=== PATIENT | female | born 2000 | race African-American/Black ===

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

== ENCOUNTER 2020-08-13 10:10 | Day surgery (SDC) | payer OTHER, SELFPAY ==
--- NOTE | 2020-08-11 16:56 | HP.PCM_ITS ---
History and Physical Date of Admission: 08/13/20 HISTORY AND PHYSICAL ? Sapna Veras 2000 ? ? REFERRING PHYSICIAN: Jose Alberto Boyer * ? CHIEF COMPLAINT: Consult (Consult Abd pain / Weight) ? HPI: The patient is a 20 year old female with multiple complaints - primarily abdominal pain, fatigue, and weight loss. 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 Usually worse in the mornings. She notes it is intermittent and that it radiates to the back. It is constant but waxes and wanes. She states that it is difficult to describe the pain, she states that it is not stabbing or burning, but it is severe. She also notes neck and back pain. She states that because of the pain she can barely walk at times. She also would note that her heart would beat fast. She also notes occasional black stools. She denies blood in her stools. She denies constipation or diarrhea. She denies nausea/emesis. I had stomach ulcers about 2 years ago, <they told me> back in my home [place]. She has been trialed on omeprazole but she does not believe that it has improved her symptoms. She complains of increased tiredness since summer. I'm very used to my body....need more sleep than 9 hours. I noticed <that when> I wake up <I feel> haven't slept at all...sleep 15 hours...wake up feeling weak...heart palpitations. She notes of weight loss for the past 9 months, she has lost 30#, she states that it has stabilized. She states that she has no appetite. She denies fevers, but feels hot when it is cold outside. She states that she is a social use of cigarettes. She admits to marijuana use; she states that she used it about 2-3 weeks ago, but then admits that she uses it every weekend. She states that she drinks alcohol about every 2 months only. She notes of no cancer in her immediate family. ? ? PAST MEDICAL HISTORY Diagnosis Date ? Ovarian cyst ? ? PAST SURGICAL HISTORY: Denies ? ? Current Outpatient Medications Medication Sig ? omeprazole (PRILOSEC) 20 mg capsule Take 40 mg by mouth once daily. ? ? ALLERGIES: Patient has no known allergies. ? PERSONAL HISTORY: Social History ? Tobacco Use ? Smoking status: Light Tobacco Smoker Substance Use Topics ? Alcohol use: Not on file ? Drug use: Not on file Admits to occasional marijuana use, weekly, last about a week ago ? ? FAMILY HISTORY: no cancer in immediate family ? The review of systems data was entered by the nurse and reviewed by me ? Nursing Notes: Abe Sepulveda JESSICA 08/01/2020 3:44 PM Signed REVIEW OF SYSTEMS: General: The patient NOTES fatigue, NOTES weight loss, denies weight gain, NOTES feeling hot, and denies feelings of cold. Eyes: The patient denies glaucoma, denies eye injury/surgery, does not wear glasses or contacts. Ear/Nose/Throat: The patient denies allergies, denies hayfever, denies ear infections, and denies bloody noses. Cardiovascular: The patient NOTES chest pain, denies heart disease, denies high blood pressure,denies cardiac stent, denies prior heart attack, denies irregular heart beat, denies high cholesterol, denies poor circulation, denies heart failure, other cardiac issues, denies claudication, denies cold feet, denies peripheral arterial stent. Respiratory: The patient denies tuberculosis, denies pneumonia, denies frequent cough, denies pulmonary embolism, denies shortness of breath, and denies coughing up blood. Gastrointestinal: The patient denies difficulty swallowing, denies acid reflux,NOTES ulcers, denies vomiting, NOTES jaundice/hepatitis, denies gallbladder problems, denies black or tarry stools, denies hemorrhoids, denies bleeding from rectum, denies diverticulitis, denies constipation, denies diarrhea, denies loss of stool control, and denies hernias. Kidney/Bladder: The patient denies kidney stones, denies urine infections, and denies bloody urine. Skin: The patient denies a history of skin cancer, denies bleeding/changing moles, and denies a history of skin rash. Neurologic: The patient denies a history of epilepsy/convulsions, denies headaches, denies head/spinal injuries, and denies stroke/TIA. Psychiatric: The patient denies psychiatric medications, denies depression, and denies voices, denies substance abuse. Endocrine: The patient denies thyroid disorders, denies diabetes, and denies hormonal problems. Hematologic: The patient denies a history of bruising, denies bleeding, and denies anemia, denies blood clots. Infections: The patient denies a history of measles and mumps, denies rheumatic fever, and denies sexually transmitted diseases. Musculoskeletal: The patient denies back pain/injury, denies back problems, denies sciatica, denies knee/foot trouble, denies arthritis, or denies gout. When was patient's last Mammogram screening? N/A Last Colonoscopy: N/A Abe Sepulveda LPN ? PHYSICAL EXAMINATION: General: The patient is 20 year old female, well nourished, well hydrated in no acute distress. The patient is oriented to time, place, and person. VITALS: Pulse 98, temperature 37.1 ?C (98.8 ?F), height 162.6 cm (5' 4), weight 54 kg (119 lb), SpO2 100 %. Body mass index is 20.43 kg/m?. Head ? Normocephalic. EOM intact with sclera clear and no icterus noted.. Neck - supple with no jugular venous distention noted. Trachea is midline. Lungs ? clear to auscultation. Normal breath sounds. No rales/rhonchi/wheezing noted. No labored breathing noted, such as retractions. No cough heard. Heart ? normal S1 and S2 auscultated. No rubs/clicks/murmurs noted. Regular rate. Abdomen ? soft and benign. Normal bowel sounds. No abdominal bruits noted. Extremities ? no calf tenderness noted. No pitting edema noted. Skin ? normal skin integrity. Neurological ? gait normal, no focal deficits noted. Psych ? calm and appropriate ? ? Assessment IMPRESSION: abdominal pain, melena, weight loss, fatigue ? PLAN: . I have discussed the above with the patient. I have offered EGD, possible biopsies I have explained the procedure to the patient. I have counseled the patient as to the risks of the procedure, including but not limited to: infection, bleeding, injury to any intrabdominal organs such as liver/spleen, perforation of the GI tract, inability to complete the procedure, complications of anesthesia, etc. ? the patient understands. ? The patient was offered a surgery/procedure at a [facility]. The provider and patient have discussed in detail the risk of exposure to and/or potential harm posed by the COVID-19 virus with having a surgery/procedure at this time versus the risk of? delaying the surgery/procedure. It is not possible to know either the risk of delaying the surgery or procedure or chance of getting an infection with perfect accuracy, but a joint decision was made between the patient and the provider ?to proceed at this time with the scheduled surgery/procedure. ? The patient wishes to proceed. I will also order an US of the RUQ abdomen to rule out gallbladder disease. I have answered all questions to the patient?s satisfaction and the patient has no further questions. ? . Diagnoses: (R10.13) Epigastric abdominal pain (primary encounter diagnosis) (K92.1) Melena (R63.4) Abnormal weight loss (R53.81, R53.83) Malaise and fatigue Return to Clinic: The patient is instructed to follow-up with me after the procedures to discuss the results. ? ? Elle Jamison MD
[2020-08-13] VITALS (7 sets, daily range): BP systolic 83–114; BP diastolic 52–88; PULSE 59–105; RESP 16–18; TEMP 36.2–36.8; O2SAT 99–100; BMI 19.2
--- NOTE | 2020-08-13 | COLBX_PTH ---
PATIENT: CASEY CULP LOC: [facility] U#:[id number] AGE/SX: 20/F ROOM: RE08/13/[address]: Dr. Elle Jamison MD : 2000 BED: DIS: 08/13/2020 SPEC #: [id number] RECD: 08/13/20 12:12 STATUS: AVILA REDg #: [id number] GLORIA: 08/13/20 00:[address]: Elle Jamison DEPT: SURGICAL PATHOLOGY RECD BY: Ulises Giraldo ENTERED: 08/13/20 12:13 SP TYPE: COLON BX OTHR DR: Dr. Morgan Boo MD Tissues: A - Duodenum, NOS B - Gastric mucous membrane Procedures: Surgery Specimen Level IV HEADER OPERATION[place] [place] DIAGNOSIS: Abdominal pain, melena, weight loss, fatigue TISSUE SUBMITTED: A ? Duodenum biopsy, B ? Antrum biopsy for H. pylori and path MICROSCOPIC DIAGNOSIS A. Duodenum, biopsy: A fragment of duodenal mucosa, no pathologic diagnosis. B. Antrum, biopsy: Mild to moderate gastritis. See microscopic description and comment. JESÚS:aldo 08/14/2020 COMMENT B. The results of immunohistochemistry for Helicobacter pylori will be reported separately ([id number]). MICROSCOPIC DESCRIPTION Slides are reviewed. B. The specimen shows fragments of gastric mucosa with chronic inflammatory cell infiltrates in the lamina propria consisting of lymphocytes and plasma cells, consistent with mild to moderate chronic gastritis. GROSS DESCRIPTION A - Received in fixative is one container labeled with the patient's name and designated duodenum biopsy. The specimen consists of one irregular fragment of light isaac soft tissue that measures 0.3 x 0.3 x 0.1 cm. The specimen is totally submitted in one cassette. B - Received in fixative is one container labeled with the patient's name and designated antrum biopsy. The specimen consists of one irregular fragment of light isaac soft tissue that measures 0.3 x 0.2 x 0.1 cm. The specimen is totally submitted in one cassette. / JESÚS:aldo 08/13/20 TC:3 CPT: 42063 x2
--- NOTE | 2020-08-13 10:30 | IMM_PTH ---
PATIENT: CASEY CULP LOC: [facility] U#:[id number] AGE/SX: 20/F ROOM: RE08/13/[address]: Dr. Elle Jamison MD : 2000 BED: DIS: 08/13/2020 SPEC #: [id number] RECD: 08/13/20 13:22 STATUS: AVILA REQ #: [id number] GLORIA: 08/13/20 10:[address]: Elle Jamison DEPT: IMMUNOHISTOCHEMISTRY RECD BY: Bessy Gonzalez ENTERED: 08/13/20 13:23 SP TYPE: IMMUNO OTHR DR: Dr. Morgan Boo MD Tissues: B - Stomach, NOS Procedures: H Pylori (initial) PHYSICIAN & INSTITUTION [place] [id number] SPECIMEN INFORMATION: Tissue Source: B ? Antrum biopsy Clinical Info: Abdominal pain, melena, weight loss, fatigue Specimen Number: [id number] CPT code: 93304 METHODOLOGY: Deparaffinized sections of prefer/formalin-fixed tissue or PAP/DQ stained slides are incubated with monoclonal/polyclonal antibodies/oligonucleotide probes. Localization is made via biotin free immunoperoxidase method. Appropriate controls are performed and reacted as expected. Results on target cell population are indicated in the following table: RESULTS: ANTIBODY / CLONE RESULT Block B H Pylori (polyclonal) negative These tests were developed and their performance characteristics determined by [facility]. They may not have been cleared or approved by the U.S. Food and Drug Administration. The FDA has determined that such clearance or approval is not necessary. INTERPRETATION: B. Antrum biopsy: Negative for Helicobacter pylori organisms. SJ:aldo 08/14/2020
[2020-08-13 10:40] LABS: Internal QC Validated? YES +Cl - CLEAR BKGD; Pregnancy, Urine Negative Negative
--- NOTE | 2020-08-13 11:17 | OP.CCLET_ITS ---
08/13/2020 Morgan Boo [address] [place] [address] Re : Upper GI endoscopy procedure for Sapna Lawrencemarleen Dear Dr. Boo This procedure was performed on Thursday, August 13, 2020. My impressions and recommendations are as follows: Impressions : - Erythematous duodenopathy. Biopsied. - Clotted blood in the gastric fundus. Biopsied antrum to rule out H pylori. - Normal esophagus. Recommendations : - Discharge patient to home (ambulatory). - Resume previous diet. - Continue present medications. - Follow up visit via telemedicine with Mariam Kilpatrick PA-C to discuss results. Call to set this up, thank you My findings are described in the full procedure note, which is enclosed. If I can be of further assistance, please feel free to contact me at Doctor phone number(s): , Work: . Sincerely, MD Elle Boo MD 08/13/2020 11:16:53 AM This report has been signed electronically.
--- NOTE | 2020-08-13 11:17 | OP.EGD_ITS ---
Patient Name: Sapna Veras Procedure Date: 08/13/2020 10:23 AM Date of : 2000 Age: 20 Procedure: Upper GI endoscopy Indications: Epigastric abdominal pain, Early satiety, Nausea with vomiting, Weight loss Providers: Elle Jamison MD Medicines: See the Anesthesia note for documentation of the administered medications Patient Profile: Refer to note in patient chart for documentation of history and physical. Complications: No immediate complications. Procedure: Pre-Anesthesia Assessment: - see anesthesia note After obtaining informed consent, the endoscope was passed under direct vision. Throughout the procedure, the patient's blood pressure, pulse, and oxygen saturations were monitored continuously. The gastroscope was introduced through the mouth, and advanced to the second part of duodenum. The upper GI endoscopy was accomplished without difficulty. The patient tolerated the procedure well. Scope In: 10:57:00 AM Scope Out: 11:10:04 AM Total Procedure Duration Time 0 hours 13 minutes 4 seconds Findings: Localized mildly erythematous mucosa without active bleeding and with no stigmata of bleeding was found in the duodenal bulb. Biopsies were taken with a cold forceps for histology. Verification of patient identification for the specimen was done. Estimated blood loss was minimal. Clotted blood was found in the gastric fundus - no source was identified - no evidence of esophageal stricture/etc.- possible Avis Khoury? Biopsies were taken with a cold forceps for histology/H pylori of the antrum. Verification of patient identification for the specimen was done by the registered dietetic technician. The examined esophagus was normal - no hiatal hernia, GE junction normal, no strictures. Impression: - Erythematous duodenopathy. Biopsied. - Clotted blood in the gastric fundus. Biopsied antrum to rule out H pylori. - Normal esophagus. Recommendation: - Discharge patient to home (ambulatory). - Resume previous diet. - Continue present medications. - Follow up visit via telemedicine with Mariam Kilpatrick PA-C to discuss results. Call to set this up, thank you Procedure Code(s): --- Professional --- 18653, Esophagogastroduodenoscopy, flexible, transoral; with biopsy, single or multiple Diagnosis Code(s): --- Professional --- K31.89, Other diseases of stomach and duodenum K92.2, Gastrointestinal hemorrhage, unspecified R10.13, Epigastric pain R68.81, Early satiety R11.2, Nausea with vomiting, unspecified R63.4, Abnormal weight loss CPT copyright 2017 [employer]. All rights reserved. The codes documented in this report are preliminary and upon petal shaper hand review may be revised to meet current compliance requirements. MD Elle Boo MD 08/13/2020 11:16:53 AM This report has been signed electronically. Number of Addenda: 0 Note Initiated On: 08/13/2020 10:23 AM
== END 2020-08-13 12:23 ==
LOC: EN 10:11 → AC 10:13
PROVIDERS: PCP Pediatrics; Referring Provider Pediatrics; Visit Provider Surgery
PROC: 0DJ08ZZ Inspection of Upper Intestinal Tract, Via Natural or Artificial Opening Endoscopic (ICD-10-PCS; CPT 43235; principal; 2020-08-13 10:25)
DX: K29.50 Unspecified chronic gastritis without bleeding (principal); R11.2 Nausea with vomiting, unspecified; R68.81 Early satiety; R10.13 Epigastric pain; R63.4 Abnormal weight loss; R53.81 Other malaise; R53.83 Other fatigue; K31.89 Other diseases of stomach and duodenum; F17.210 Nicotine dependence, cigarettes, uncomplicated; F12.90 Cannabis use, unspecified, uncomplicated
CPT/HCPCS: 43239; 81025; 87426; 88305; 88342; J7120; J2405

== ENCOUNTER → 2020-08-18 12:38 | Outpatient (CLI) | payer OTHER, SELFPAY ==
[2020-08-13 10:39] VITALS: BMI 19.2
== END ==
PROVIDERS: PCP Pediatrics; Referring Provider Family Medicine; Visit Provider Family Medicine
DX: Z23 Encounter for immunization (principal)
CPT/HCPCS: 0031A; 91303

== ENCOUNTER 2021-02-05 11:55 | Emergency (ER) | payer OTHER, SELFPAY ==
[2021-02-05 11:56] VITALS: BP 120/88; PULSE 93; RESP 16; TEMP 36.9; O2SAT 97; BMI 20.2
--- NOTE | 2021-02-05 12:08 | EDS_ITS ---
HPI History of Present Illness Chief Complaint: Flank Pain Narrative Narrative: Patient presents with epigastric pain. Chief complaint says flank pain currently she has no flank pain or urinary symptoms. She is describing epigastric pain for the past few weeks worse with eating. She has no right upper quadrant pain she has no lower abdominal pain although she has had lower abdominal pain in the past and has been said to be secondary to ovarian cyst. No chest pain or shortness of breath. No back pain. PFSH PFSH Medical History no medical history Home Medications famotidine [Pepcid] 20 mg PO BID #10 tab 02/05/21 [Rx Last Taken Unknown] omeprazole 20 mg PO DAILY #14 cap 02/05/21 [Rx Last Taken Unknown] Allergy/AdvReac Type Severity Reaction Status Date / Time No Known Allergies Allergy Verified 02/05/21 11:57 Surgical History no surgical history Social History Smoking Status: Current some day smoker tobacco type: cigarettes ROS ROS ED ROS Narrative Past medical history: Reviewed, unremarkable Medications: Reviewed Social history: Noncontributory Review of systems: All systems negative except as indicated General: No feve Cardiovascular: No chest pain Respiratory: No shortness of breath or cough Gastrointestinal: Abdominal pain as in HPI Genitourinary: No dysuria. Denies Musculoskeletal: Denies myalgias no difficulty with ambulation Skin: No rash Neurological: No memory loss, confusion or any focal weakness Psych: No recent behavioral changes Hematologic: No easy bleeding or easy bruising EXAM Physical Exam Narrative Exam Narrative: Physical exam General: Patient appears comfortable in the bed. Head: Normocephalic, Atraumatic Eyes: Conjunctiva not pale ENT: Moist mucous membranes Neck: Supple, Nontender, No lymphadenopathy Cardiovascular: Regular rate, Regular rhythm Respiratory: No distress, CTA bilaterally Abdomen: Soft there is epigastric tenderness without guarding or rebound. There is no right upper quadrant pain she has a negative Nunez's there is no lower abdominal pain. No flank pain. Back: Nontender, Normal Inspection. Negative for: CVA tenderness Extremities: Nontender, No edema Skin: Normal color, No rash Neurological: Alert, Normal Strength, Normal Sensation Psychological: Normal affect Const Vital Signs: 02/05/21 11:56 02/05/21 12:10 Temperature 98.4 F Temperature Source Temporal Pulse Rate 93 Respiratory Rate 16 Respiratory Effort Normal Non-Labored Blood Pressure 120/88 H Blood Pressure Mean 98 Pulse Ox 97 Oxygen Delivery Method Room Air MDM MDM MDM Narrative Medical decision making narrative: Patient has a normal work-up, she will be discharged with PPI and antacids to follow-up with GI if no improvement. Lab Data Labs: Laboratory Results - last 24 hr 02/05/21 02/05/21 12:18 12:18 WBC 7.8 RBC 4.53 Hgb 13.8 Hct 42.0 MCV 92.7 MCH 30.5 MCHC 32.9 RDW Std Deviation 44.4 H RDW Coeff of Margarito 13.2 Plt Count 277 MPV 10.0 Immature Gran % (Auto) 0.300 Neut % (Auto) 68.0 Lymph % (Auto) 21.7 [place] % (Auto) 7.2 Eos % (Auto) 2.3 Baso % (Auto) 0.5 Absolute Neuts (auto) 5.3 Absolute Lymphs (auto) 1.70 Nucleated RBC % 0 Sodium 138 Potassium 4.0 Chloride 103 Carbon Dioxide 27.0 Anion Gap 8 BUN 11 Creatinine 0.74 Estim Creat Clear Calc 98.99 Est GFR (MDRD) Af Amer 128 Est GFR (MDRD) Non-Af 106 BUN/Creatinine Ratio 14.9 Glucose 96 Calcium 9.6 Total Bilirubin 0.40 AST 30 ALT 20 Alkaline Phosphatase 44 L Total Protein 8.8 H Albumin 4.1 Globulin 4.7 H Albumin/Globulin Ratio 0.9 Lipase 142 Discharge Plan Triage Chief Complaint: Flank Pain ED Provider: Jayce Randall Dx/Rx/DC Orders Clinical Impression: Gastritis Instructions: Treating Gastritis Prescriptions: New omeprazole 20 mg capsule,delayed release(DR/EC) 20 mg PO DAILY Qty: 14 RF: 0 famotidine [Pepcid] 20 mg tablet 20 mg PO BID Qty: 10 RF: 0 Primary Care Provider: Morgan Boo Referrals: Morgan Boo MD [Primary Care Provider] - Bruce Cesar MD [NON-STAFF] - 2 Days Disposition Disposition: Home, Self Care
[2021-02-05] MEDS: Mag Hydrox/Al Hydrox/Simeth 30 ML UDC PO (12:19)
[2021-02-05] MEDS: Famotidine 200 MG/20 ML MDV 20 MG in 0.9% Normal Saline (Pres. free 8 ML 300 MG IV (12:20)
[2021-02-05 12:25] LABS: Absolute Neutrophil Count 5.3 X10^3/uL (2.0-7.7); Basophil# 0.04 X10^3/uL; Basophil% 0.5 % (0-1); Eosinophil# 0.18 X10^3/uL; Eosinophils% 2.3 % (0-5); Hemoglobin 13.8 g/dL (12.0-15.0); Lymphocyte % 21.7 % (19-41); Mean Corp Hgb Conc 32.9 g/dL (32-36); Mean Corpuscular Hgb 30.5 pg (27.0-32.0); Mean Corpuscular Volume 92.7 fL (81-99); Monocyte# 0.56 X10^3/uL; Monocyte% 7.2 % (0-10); NRBC Flagged by Analyzer 0 % (0-5); Neutrophil # 5.32 X10^3/uL (2.7-7.7); Platelet Count 277 K/mm3 (150-450); RBC Distribution Width CV 13.2 % (11.6-14.6); RBC Distribution Width SD 44.4 fl (35.1-43.9); Red Blood Count 4.53 M/mm3 (4.2-5.4); White Blood Count 7.8 K/mm3 (4.4-11.0)
[2021-02-05 13:22] LABS: ALB/GLOB Ratio 0.9 RATIO (0.9-2.4); AST(SGOT) 30 U/L (15-37); Alanine Aminotransfer ALT/SGPT 20 U/L (13-56); Albumin, Serum 4.1 g/dL (3.2-5.0); Alkaline Phosphatase 44 U/L (45-117); Anion Gap 8 (5-15); BUN 11 mg/dL (7-18); BUN/Creat Ratio 14.9 RATIO (10-20); Calcium,Total 9.6 mg/dL (8.5-10.1); Chloride 103 mmol/L (98-107); Creatinine, Serum 0.74 mg/dL (0.55-1.02); EST Glomerular Filtration Rate 106 mL/min (>60); Est Glom Filt Rate - Afr Amer 128 mL/min (>60); Estimated Creatinine Clearance 98.99 ml/min; Globulin 4.7 g/dL (2.2-4.2); Glucose 96 mg/dL (74-106); Lipase 142 U/L (73-393); Protein, Total 8.8 g/dL (6.4-8.2); Sodium Level 138 mmol/L (136-145)
[2021-02-05 14:39] VITALS: BP 114/72; PULSE 86; RESP 14; O2SAT 98
== END 2021-02-05 14:40 | disposition home or self-care (01) ==
PROVIDERS: Emergency Provider Emergency Medicine; PCP Pediatrics
DX: K29.70 Gastritis, unspecified, without bleeding (principal); F17.210 Nicotine dependence, cigarettes, uncomplicated
CPT/HCPCS: 36415; 80053; 83690; 85025; 99284; A4216; J3490

== ENCOUNTER 2021-05-12 15:56 | Outpatient (CLI) | payer OTHER, SELFPAY | END 2021-05-12 23:59 | disposition short-term general hospital (02) | LOC: IMMUN 05-19 15:57 | PROVIDERS: PCP Pediatrics; Visit Provider Family Medicine | DX: Z23 Encounter for immunization (principal) ==